=== PATIENT | female | born 1995 | race Asian ===

== ENCOUNTER 2019-10-06 15:34 | Emergency (ER) | payer OTHER ==
[2019-10-06 15:56] VITALS: BP 115/68
[2019-10-06] MEDS ORDERED: Ibuprofen TAB* 600 MG PO ONE ×3 (16:37→16:42)
[2019-10-06] MEDS ORDERED: Ondansetron ODT TAB* 4 MG PO ONE ×2 (16:38→16:39)
--- NOTE | 2019-10-06 16:46 | UC ---
Nausea/Vomiting/Diarrhea HPI - HPI Summary HPI Summary: 24-year-old female comes in with a chief complaint of 2 days of nausea vomiting and fevers. Denies any focal abdominal pain. Does state that her abdomen does feel upset. No complaint of any diarrhea. Patient reports she's had her appendix out. Reported a fever at home. No fever here in clinic. Denies any sore throats or ear pain or runny nose. Denies any urinary symptoms. - History of Current Complaint Chief Complaint: UCGeneralIllness Stated Complaint: FEVER, STOMACH PAIN Time Seen by Provider: 10/06/19 16:20 Hx Last Menstrual Period: three weeks ago Pain Intensity: 6 - Allergies/Home Medications Allergies/Adverse Reactions: Allergies Allergy/AdvReac Type Severity Reaction Status Date / Time Penicillins Allergy Anaphylatic Verified 10/06/19 15:49 Shock Home Medications: Home Medications Ibuprofen 300 tab PO ONCE PRN 10/06/19 [History Confirmed 10/06/19] PMH/Surg Hx/FS Hx/Imm Hx Previously Healthy: Yes - Surgical History Surgical History: Yes Surgery Procedure, Year, and Place: appendectomy - Family History Known Family History: Positive: Non-Contributory - Social History Alcohol Use: None Substance Use Type: None Smoking Status (MU): Never Smoked Tobacco Review of Systems All Other Systems Reviewed And Are Negative: Yes Constitutional: Positive: Fever, Other - SEE HPI Skin: Positive: Negative Eyes: Positive: Negative ENT: Positive: Negative Respiratory: Positive: Negative Cardiovascular: Positive: Negative Gastrointestinal: Positive: Vomiting, Nausea, Other - SEE HPI Genitourinary: Positive: Negative Motor: Positive: Negative Neurovascular: Positive: Negative Musculoskeletal: Positive: Negative Neurological: Positive: Negative Psychological: Positive: Negative Is Patient Immunocompromised?: No Physical Exam Triage Information Reviewed: Yes Appearance: No Pain Distress, Well-Nourished, Ill-Appearing - MILD Vital Signs: Initial Vital Signs Temp 98.9 F 10/06/19 15:45 Pulse 110 10/06/19 15:45 Resp 18 10/06/19 15:45 BP 115/68 10/06/19 15:45 Pulse Ox 98 10/06/19 15:45 Vital Signs Reviewed: Yes Eye Exam: Normal Eyes: Positive: Conjunctiva Clear ENT: Positive: Pharynx normal. Negative: Pharyngeal erythema, Nasal congestion , Nasal drainage Neck: Positive: Supple Respiratory: Positive: Lungs clear, Normal breath sounds, No respiratory distress Cardiovascular: Positive: RRR Abdomen Description: Positive: Nontender, Soft Bowel Sounds: Positive: Present Musculoskeletal: Positive: Strength Intact, ROM Intact Neurological: Positive: Alert, Muscle Tone Normal Psychological: Positive: Age Appropriate Behavior Skin Exam: Normal Naus/Vom/Diarrhea Course/Dx - Course Course Of Treatment: On examination patient has no abdominal tenderness. No fever here in clinic. I discussed with the patient that we will treat with Zofran for nausea and ibuprofen for fever. I let her know that if she did not improve she needed further evaluation and if she got worse she needs to go the emergency department. - Differential Dx/Diagnosis Provider Diagnosis: Nausea & vomiting, Fever Condition At Discharge: Stable Discharge ED - Sign-Out/Discharge Documenting (check all that apply): Patient Departure All imaging exams completed and their final reports reviewed: No Studies - Discharge Plan Condition: Stable Disposition: HOME Prescriptions: Ibuprofen TAB* [Motrin TAB* 600 MG] 600 mg PO Q6H PRN #20 tab PRN Reason: Mild Pain Or Temp > 100.4 Ondansetron ODT TAB* [Zofran 4 MG Odt TAB*] 4 mg PO Q6H PRN #10 tab.odt PRN Reason: Nausea Patient Education Materials: Fever in Adults (ED), Acute Nausea and Vomiting ( ED) Referrals: [facility] [Provider Group] [facility] [Outside] Additional Instructions: FOLLOW UP WITH YOUR DOCTOR IF NOT COMPLETELY IMPROVED. GET REEVALUATED SOONER IF NOT IMPROVED OR GO TO THE EMERGENCY DEPARTMENT IF WORSE;ABDOMINAL PAIN, DEHYDRATION, YOU FEEL ILL OR ANY QUESTIONS OR CONCERNS. - Billing Disposition and Condition Condition: STABLE Disposition: Home
== END 2019-10-06 16:58 | disposition home or self-care (01) ==
LOC: EDBD 15:34 → UCEAST 15:34
DX: R11.2 Nausea with vomiting, unspecified (principal); R50.9 Fever, unspecified; Z88.0 Allergy status to penicillin
CPT/HCPCS: 99203; A9270-GY; G0463